=== PATIENT | male | born 1985 | race Caucasian/White ===

== ENCOUNTER → 2021-05-27 | Outpatient (CLI) | payer OTHER | LOC: COL.RAD 12:21 | DX: S43.432A Superior glenoid labrum lesion of left shoulder, initial encounter (principal); M75.102 Unspecified rotator cuff tear or rupture of left shoulder, not specified as traumatic; R60.0 Localized edema | CPT/HCPCS: A9585; Q9967 ==

== ENCOUNTER → 2022-07-28 | Outpatient (CLI) | payer OTHER | LOC: COL.RAD 07:12 | DX: M51.36 Other intervertebral disc degeneration, lumbar region (principal); M51.26 Other intervertebral disc displacement, lumbar region; M48.061 Spinal stenosis, lumbar region without neurogenic claudication ==